=== PATIENT | male | born 1960 | race American Indian/Alaskan Native ===

== ENCOUNTER 2016-08-08 07:52 | Outpatient (CLI) | payer OTHER | END 2016-08-08 07:53 | disposition home or self-care (01) | DX: Z53.9 Procedure and treatment not carried out, unspecified reason (principal) ==

== ENCOUNTER 2017-06-22 15:31 | Outpatient (CLI) | payer OTHER ==
--- NOTE | 2017-06-22 17:36 | XRAY Report ---
DATE OF SERVICE: 06/22/2017 COMPLETE LUMBAR SPINE: 06/22/2017 CLINICAL INDICATION: Back pain. FINDINGS: AP, lateral, oblique views of the lumbar spine demonstrate mild degenerative disk and facet disease. There is bilateral L5 pars defect present, without evidence of anterolisthesis of L5 on S1. No compression fracture is seen. IMPRESSION: DEGENERATIVE CHANGES. BILATERAL L5 PARS DEFECTS, WITHOUT EVIDENCE OF ANTEROLISTHESIS OF L5 TD: 06/22/2017 17:36
== END 2017-06-22 15:32 | disposition home or self-care (01) ==
LOC: DI 15:31
PROVIDERS: ATTEND Family Medicine
DX: M47.896 Other spondylosis, lumbar region (principal); M51.36 Other intervertebral disc degeneration, lumbar region; M43.06 Spondylolysis, lumbar region
CPT/HCPCS: 72110

== ENCOUNTER 2020-01-05 10:53 | Outpatient (CLI) | payer OTHER ==
--- NOTE | 2020-01-05 11:28 | CT Report ---
PROCEDURE: HEAD WO INDICATIONS: ANESTHESIA OF SKIN TECHNIQUE: Noncontrast 4.5 mm thick angled axial sections acquired from the foramen magnum to the vertex. For r adiation dose reduction, the following was used: automated exposure control, adjustment of mA and/or kV according to patient size. COMPARISON: None. FINDINGS: Image quality: Excellent. CSF spaces: Basal cisterns are patent. No extra-axial fluid collections. Ventricles are normal in size and shape. Brain: No midline shift. No intracranial masses or hemorrhage. Spears-white matter interface is norm al. Skull and face: Calvarium and visualized facial bones are intact, without suspicious lesions. Sinuses: Visualized sinuses and mastoids are clear. IMPRESSION: No acute intracranial finding. Reviewed by: Diony Zimmer MD on 01/05/2020 11:27 AM PDT Approved by: Diony Zimmer MD on 01/05/2020 11:27 AM PDT Station ID: [id number]
== END 2020-01-05 10:54 | disposition home or self-care (01) ==
LOC: DI 10:53
PROVIDERS: ATTEND Family Medicine
DX: R20.0 Anesthesia of skin (principal)
CPT/HCPCS: 70450

== ENCOUNTER 2021-08-03 07:35 | Day surgery (SDC) | payer OTHER ==
[2021-08-03] MEDS ORDERED: LACTATED RINGERS 1,000 ML IV ONE ×2 (07:54→09:12)
[2021-08-03] MEDS ORDERED: PROPOFOL 500 MG/50 ML 500 MG/50 ML VIAL ONE (08:25)
--- NOTE | 2021-08-03 08:26 | ANESTHESIA ---
Pre-Anesthesia VS, & Labs - Diagnosis GERD, screening - Procedure EGD, Colonoscopy Vital Signs: Temp Pulse Resp BP Pulse Ox 36.7 C 99 16 160/106 H 98 08/03/21 07:56 08/03/21 07:56 08/03/21 07:56 08/03/21 07:56 08/03/21 07:56 Height: 5 ft 10 in Weight (kg): 104.6 kg Body Mass Index: 33.0 BMI Classification: Obese - NPO >8 hours - Lab Results Current Lab Results: Laboratory Tests 08/03/21 08:07: POC Whole Bld Glucose 128 H Home Medications and Allergies Allergies/Adverse Reactions: Allergies Allergy/AdvReac Type Severity Reaction Status Date / Time No Known Drug Allergies Allergy Verified 08/03/21 08:00 Anes History & Medical History - Anesthetic History Family history of Anesthesia Complications: Denies Family history of Malignant Hyperthermia: Denies - Medical History Cardiovascular: reports: Congestive heart failure, Hypertension, High c holesterol Pulmonary: reports: None Gastrointestinal: reports: GERD Urinary: reports: None Neuro: reports: Other (tinnitis) Musculoskeletal: reports: None Endocrine/Autoimmune: reports: Type 2 diabetes, HyPOthyroidism Skin: reports: Eczema Psychosocial: reports: Anxiety - Surgical History Orthopedic: reports: Arthroscopic surgery Exam General: Alert Dental: WNL, Other (removed dental work prior to arrival to preop) Mouth Openin Fingerbreadth Neck Mobility: Normal Mallampati classification: II Respiratory: Lungs clear Cardiovascular: Regular rate Plan Anesthesia Type: Total IV Consent for Procedure(s) Verified and Reviewed: Yes Code Status: Attempt Resuscitation ASA classification: 3-Severe systemic disease Is this case an emergency?: No
[2021-08-03 09:46] VITALS: BP 162/89
[2021-08-03] MEDS ORDERED: LIDOCAINE 1% 50 ML MDV ONE (12:16)
[2021-08-03] MEDS ORDERED: BUPIVACAINE 0.5% PF 10 ML VIAL ONE (12:16)
--- NOTE | 2021-08-03 15:11 | ANESTHESIA POST OP EVALUATION ---
Anesthesia Post Eval - Post Anesthesia Eval Vitals: Last Vital Signs Temp 36.6 C 08/03/21 09:44 Pulse 74 08/03/21 09:44 Resp 15 08/03/21 09:44 BP 162/89 H 08/03/21 09:44 Pulse Ox 97 08/03/21 09:44 CV Function Including HR & BP: Stable Pain Control: Satisfactory Nausea & Vomiting: Negative Mental Status: Baseline Respiratory Status: Airway Patent Hydration Status: Satisfactory Anesthesia Complications: None
== END 2021-08-03 07:36 | disposition home or self-care (01) ==
LOC: SDS 07:35
PROVIDERS: ATTEND Surgery
PROC: 0DB78ZX Excision of Stomach, Pylorus, Via Natural or Artificial Opening Endoscopic, Diagnostic (ICD-10-PCS; 2021-08-03)
PROC: 0DBK8ZZ Excision of Ascending Colon, Via Natural or Artificial Opening Endoscopic (ICD-10-PCS; principal; 2021-08-03 08:30)
PROC: 0DB58ZX Excision of Esophagus, Via Natural or Artificial Opening Endoscopic, Diagnostic (ICD-10-PCS; 2021-08-03 08:30)
DX: Z12.11 Encounter for screening for malignant neoplasm of colon (principal); K21.9 Gastro-esophageal reflux disease without esophagitis; D12.2 Benign neoplasm of ascending colon; K64.8 Other hemorrhoids; K20.90 Esophagitis, unspecified without bleeding; K44.9 Diaphragmatic hernia without obstruction or gangrene; K29.50 Unspecified chronic gastritis without bleeding; E66.9 Obesity, unspecified; Z68.33 Body mass index [BMI] 33.0-33.9, adult; E11.9 Type 2 diabetes mellitus without complications
CPT/HCPCS: 43239; 45385; 87635; J7120

== ENCOUNTER 2022-11-30 06:43 | Day surgery (SDC) | payer OTHER ==
[~2022-11-30 06:43] MED LIST: CYCLOPENTOLATE 1% OPHTH DROPS 2 ML ONE; KETOROLAC 0.45% OPHTH DROPS ONE; PHENYLEPHRINE 2.5% OPHTH 2 ML DROPS ONE; PROPARACAINE 0.5% OPHTH DROPS 15 ML ONE
[2022-11-30] MEDS ORDERED: LACTATED RINGERS 1,000 ML IV ONE ×2 (06:57→08:21)
--- NOTE | 2022-11-30 07:41 | ANESTHESIA ---
Pre-Anesthesia VS, & Labs - Diagnosis L cataract - Procedure L PhacoIOL Vital Signs: Temp Pulse Resp BP Pulse Ox O2 Flow Rate 36.5 C 86 16 145/96 H 95 11/30/22 07:06 11/30/22 07:06 11/30/22 07:06 11/30/22 07:06 11/30/22 07:06 Height: 5 ft 10 in Weight (kg): 105 kg Body Mass Index: 33.2 BMI Classification: Obese - NPO >8 hours - Lab Results Current Lab Results: Laboratory Tests 11/30/22 07:15: POC Whole Bld Glucose 145 H Home Medications and Allergies ALPRAZolam [Alprazolam] 0.5 mg PO DAILY PRN 08/03/21 Aspirin [[place] Aspirin] 81 mg PO DAILY 08/03/21 Cetirizine [ZyrTEC] 10 mg PO DAILY 08/03/21 Dupilumab [Dupixent Pen] 300 mg SQ UD 08/03/21 Gabapentin [Neurontin] 300 mg PO BID 08/03/21 Insulin Glargine [Lantus Solostar] 45 - 50 unit SQ DAILY 08/03/21 Levothyroxine [Synthroid] 125 mcg PO QDAC 08/03/21 Losartan Potassium [Cozaar] 100 mg PO DAILY 08/03/21 Metformin HCl [Metformin ER Gastric] 1,000 mg PO BID 08/03/21 Metoprolol Tartrate [Lopressor] 50 mg PO DAILY 08/03/21 Omeprazole Magnesium 20 mg PO DAILY 08/03/21 Sildenafil Citrate [Sildenafil] 20 mg PO DAILY 08/03/21 Simvastatin [Zocor] 20 mg PO DAILY 08/03/21 Testosterone Cypionate 200 mg IM UD 08/03/21 Allergies/Adverse Reactions: Allergies Allergy/AdvReac Type Severity Reaction Status Date / Time No Known Drug Allergies Allergy Verified 08/03/21 08:00 Anes History & Medical History - Anesthetic History Anesthesia Complications: reports: No previous complications Family history of Anesthesia Complications: Denies - Medical History Cardiovascular: reports: Congestive heart failure, Hypertension, High cholesterol Pulmonary: reports: None Gastrointestinal: reports: GERD Urinary: reports: None Neuro: reports: Other (tinnitis) Musculoskeletal: reports: None Endocrine/Autoimmune: reports: Type 2 diabetes, HyPOthyroidism Skin: reports: Eczema - Surgical History General: reports: Colonoscopy Orthopedic: reports: Arthroscopic surgery Exam General: Alert, Oriented x3, Cooperative Dental: WNL Mouth Openin Fingerbreadth Neck Mobility: Normal Mallampati classification: II Thyromental Distance: 4-6 cm Respiratory: Lungs clear Cardiovascular: Regular rate Plan Anesthesia Type: MAC Consent for Procedure(s) Verified and Reviewed: Yes Code Status: Attempt Resuscitation ASA classification: 2-Mild systemic disease Is this case an emergency?: No
[2022-11-30] MEDS ORDERED: MIDAZOLAM 2 MG/2 ML VIAL ONE (07:47)
[2022-11-30] MEDS ORDERED: fentaNYL 100 MCG/2 ML VIAL ONE (07:47)
[2022-11-30] MEDS ORDERED: TRIAMCIN/MOXIFLOX OPHTHALMIC 0.6 ML VIAL IO ONE ×2 (07:53→08:16)
[2022-11-30] MEDS ORDERED: EPINEPHrine 1 MG/ML AMP ONE (07:53)
[2022-11-30] MEDS ORDERED: TIMOLOL 0.5% OPHTH DROPS ONE (07:53)
[2022-11-30] MEDS ORDERED: BRIMONIDINE 0.2% OPHTH DROPS 5 ML ONE (07:53)
[2022-11-30] MEDS ORDERED: BSS/LIDOCAINE/EPINEPHRINE 1 ML VIAL ONE (07:54)
[2022-11-30] MEDS ORDERED: VANCOMYCIN OPHTH (TOPICAL) 10 MG/ML SYRINGE ONE (07:54)
[2022-11-30] MEDS ORDERED: VANCOMYCIN OPHTH (TOPICAL) 10 MG/ML SYRINGE TOP ONE (08:16)
[2022-11-30] MEDS ORDERED: BSS/LIDOCAINE/EPINEPHRINE 1 ML SYRINGE IO ONE (08:16)
[2022-11-30] MEDS ORDERED: PROPARACAINE 0.5% OPHTH DROPS 15 ML LEFTEYE ONE (08:16)
[2022-11-30] MEDS ORDERED: TIMOLOL 0.5% OPHTH DROPS OPTH ONE (08:16)
[2022-11-30] MEDS ORDERED: EPINEPHrine 1 MG/ML AMP IR ONE (08:16)
[2022-11-30] MEDS ORDERED: BRIMONIDINE 0.2% OPHTH DROPS 5 ML OPTH ONE (08:17)
--- NOTE | 2022-11-30 08:32 | OPERATIVE REPORT ---
Operative Report - Other Other Information/Narrative: Date of Surgery: 11/30/22 Preop Dx: Visually significant cataract left eye. This was the first cataract surgery. Postop Dx: Same Procedure: Phacoemulsification with posterior chamber intraocular lens implant left eye Surgeon: Dr. Maurice Ramey Anesthesia: Monitored anesthesia care Complications: None Operative Indications: This is a 62-year-old M with progressive vision loss in the left eye due to 1+ nuclear sclerotic, trace posterior subcapsular, and vacuolar cataract. Best corrected visual acuity was 20/25 with glare to 20/250 vision in the left eye. Indications for surgery were: - Overall decrease in vision - Difficulty seeing words on a computer screen - Difficulty reading - Difficulty seeing words, closed captions, or game scores on TV - Difficulty seeing street signs - Difficulty driving in low light or at night - Difficulty driving at night because of headlights from other vehicles - Difficulty with glare or bright lights in any situation - Decreased acuity with firearms The patient was consented at length concerning the risks and benefits of cat aract surgery after which the patient expressed a desire to proceed with surgery. Operative Procedure: The patient was taken into OR#3 and placed under monitored anesthesia care. A surgical time-out was conducted confirming correct patient, correct procedure, and correct surgical site. The patient was given topical anesthesia and then prepped and draped in the usual sterile fashion. The eye was entered at the 6 and 3 oclock positions. Intracameral Shugarcaine was injected into the anterior chamber followed by a dispersive viscoelastic. A continuous-tear curvilinear capsulorhexis was performed. The nucleus was hydrodissected and phacoemulsified. The cortex was evacuated using automated infusion and aspiration. A cohesive viscoelastic was injected into the capsular bag and a 17.0 diopter intraocular lens was inserted into the bag. Infusion and aspiration were used to evacuate the viscoelastic materials from the eye. The wounds were hydrated and the eye inflated to physiologic pressure using balanced salt solution. Approximately 0.25ml of a mixture of triamcinolone and moxifloxacin was injected trans-sclerally into the vitreous in the inferotempora l quadrant using a 30 gauge cannula. An additional 0.25ml of a mixture of triamcinolone and moxifloxacin was injected subconjunctivally in the superior quadrant for infection and inflammation prophylaxis. Wound integrity was checked with Weck-Jada sponges. The patient was taken from the operating room in good condition and given post-op instructions.
[2022-11-30 08:35] VITALS: BP 124/89
--- NOTE | 2022-11-30 10:46 | ANESTHESIA POST OP EVALUATION ---
Anesthesia Post Eval - Post Anesthesia Eval Vitals: Last Vital Signs Temp 36.1 C L 11/30/22 08:22 Pulse 89 11/30/22 08:31 Resp 95 H 11/30/22 08:31 BP 124/89 H 11/30/22 08:31 Pulse Ox 13 L 11/30/22 08:31 O2 Flow Rate CV Function Including HR & BP: Stable Pain Control: Satisfactory Nausea & Vomiting: Negative Mental Status: Baseline Respiratory Status: Airway Patent Hydration Status: Satisfactory Anesthesia Complications: None
== END 2022-11-30 06:44 | disposition home or self-care (01) ==
LOC: SDS 06:43
PROVIDERS: ATTEND Ophthalmology
DX: E11.36 Type 2 diabetes mellitus with diabetic cataract (principal); H25.812 Combined forms of age-related cataract, left eye; F41.9 Anxiety disorder, unspecified; E66.9 Obesity, unspecified; Z68.33 Body mass index [BMI] 33.0-33.9, adult
CPT/HCPCS: 66984; A9270; J3490; J7120

== ENCOUNTER 2023-01-18 06:24 | Day surgery (SDC) | payer OTHER ==
[~2023-01-18 06:24] MED LIST changes: -CYCLOPENTOLATE 1% OPHTH DROPS 2 ML ONE; -KETOROLAC 0.45% OPHTH DROPS ONE
[2023-01-18] MEDS: KETOROLAC 0.45% OPHTH DROPS ONE ×2 (06:39→06:40)
[2023-01-18] MEDS: CYCLOPENTOLATE 1% OPHTH DROPS 2 ML ONE ×2 (06:40→06:41)
--- NOTE | 2023-01-18 06:49 | ANESTHESIA ---
Pre-Anesthesia VS, & Labs - Diagnosis R cataract - Procedure R extraction cataract w IOL Height: 5 ft 10 in - NPO >8 hours - Lab Results Lab results reviewed: Yes Home Medications and Allergies ALPRAZolam [Alprazolam] 0.5 mg PO DAILY PRN 08/03/21 Aspirin [[place] Aspirin] 81 mg PO DAILY 08/03/21 Cetirizine [ZyrTEC] 10 mg PO DAILY 08/03/21 Dupilumab [Dupixent Pen] 300 mg SQ UD 08/03/21 Gabapentin [Neurontin] 300 mg PO TID 08/03/21 Insulin Glargine [Lantus Solostar] 45 - 50 unit SQ DAILY 08/03/21 Levothyroxine [Synthroid] 125 mcg PO QDAC 08/03/21 Losartan Potassium [Cozaar] 100 mg PO DAILY 08/03/21 Metformin HCl [Metformin ER Gastric] 1,000 mg PO BID 08/03/21 Metoprolol Tartrate [Lopressor] 50 mg PO DAILY 08/03/21 Omeprazole Magnesium 20 mg PO DAILY 08/03/21 Sildenafil Citrate [Sildenafil] 20 mg PO DAILY 08/03/21 Simvastatin [Zocor] 20 mg PO DAILY 08/03/21 Testosterone Cypionate 200 mg IM UD 08/03/21 Allergies/Adverse Reactions: Allergies Allergy/AdvReac Type Severity Reaction Status Date / Time No Known Drug Allergies Allergy Verified 01/17/23 12:33 Anes History & Medical History - Anesthetic History Anesthesia Complications: reports: No previous complications Family history of Anesthesia Complications: Denies Family history of Malignant Hyperthermia: Denies - Medical History Cardiovascular: reports: Congestive heart failure, Hypertension, High choleste rol Pulmonary: reports: None Gastrointestinal: reports: GERD Urinary: reports: None Neuro: reports: Other (tinnitis) Musculoskeletal: reports: None Endocrine/Autoimmune: reports: Type 2 diabetes, HyPOthyroidism Skin: reports: Eczema Psychosocial: reports: No issues indicated History of Cancer?: No - Surgical History General: reports: Colonoscopy Orthopedic: reports: Arthroscopic surgery Exam General: Alert, Oriented x3, Cooperative Dental: WNL Mouth Openin Fingerbreadth Neck Mobility: Normal Mallampati classification: II Thyromental Distance: 4-6 cm Respiratory: Lungs clear, Normal breath sounds, No respiratory distress Cardiovascular: Regular rate Neurological: Normal speech Mental/Cognitive Status: Alert/Oriented X3, Normal for patient Cognitive Status: Within normal limits Plan Anesthesia Type: MAC Consent for Procedure(s) Verified and Reviewed: Yes Code Status: Attempt Resuscitation ASA classification: 2-Mild systemic disease Is this case an emergency?: No
[2023-01-18] MEDS ORDERED: LACTATED RINGERS 1,000 ML IV ONE (07:05)
[2023-01-18] MEDS ORDERED: fentaNYL 100 MCG/2 ML VIAL ONE (07:07)
[2023-01-18] MEDS ORDERED: MIDAZOLAM 2 MG/2 ML VIAL ONE (07:07)
[2023-01-18] MEDS ORDERED: BRIMONIDINE 0.2% OPHTH DROPS 5 ML ONE (07:11)
[2023-01-18] MEDS ORDERED: EPINEPHrine 1 MG/ML AMP ONE (07:11)
[2023-01-18] MEDS ORDERED: TRIAMCIN/MOXIFLOX OPHTHALMIC 0.6 ML VIAL IO ONE ×4 (07:11→07:40)
[2023-01-18] MEDS ORDERED: BSS/LIDOCAINE/EPINEPHRINE 1 ML VIAL ONE (07:12)
[2023-01-18] MEDS ORDERED: TIMOLOL 0.5% OPHTH DROPS ONE (07:12)
[2023-01-18] MEDS ORDERED: BRIMONIDINE 0.2% OPHTH DROPS 5 ML OPTH ONE (07:40)
[2023-01-18] MEDS ORDERED: TIMOLOL 0.5% OPHTH DROPS OPTH ONE (07:40)
[2023-01-18] MEDS ORDERED: PROPARACAINE 0.5% OPHTH DROPS 15 ML RIGHTEYE ONE (07:40)
[2023-01-18] MEDS ORDERED: BSS/LIDOCAINE/EPINEPHRINE 1 ML SYRINGE IO ONE (07:40)
[2023-01-18] MEDS ORDERED: VANCOMYCIN OPHTH (TOPICAL) 10 MG/ML SYRINGE TOP ONE (07:40)
[2023-01-18] MEDS ORDERED: EPINEPHrine 1 MG/ML AMP IR ONE (07:40)
[2023-01-18] MEDS ORDERED: LACTATED RINGERS 850 ML IV ONE (07:46)
--- NOTE | 2023-01-18 07:54 | OPERATIVE REPORT ---
Operative Report - Other Other Information/Narrative: Date of Surgery: 01/18/23 Preop Dx: Visually significant cataract right eye. Cataract surgery was performed in the left eye on [id number]. Postop Dx: Same Procedure: Phacoemulsification with posterior chamber intraocular lens implant right eye Surgeon: Dr. Maurice Ramey Anesthesia: Monitored anesthesia care Complications: None Operative Indications: This is a 62-year-old M with progressive vision loss in the right eye due to 1+ nuclear sclerotic, 1+ posterior subcapsular, and vacuolar cataract. Best corrected visual acuity was 20/30 with glare to 20/500 vision in the right eye. Indications for surgery were: - Overall decrease in vision - Difficulty seeing words on a computer screen - Difficulty reading - Difficulty seeing words, closed captions, or game scores on TV - Difficulty seeing street signs - Difficulty driving in low light or at night - Difficulty driving at night because of headlights from other vehicles - Difficulty with glare or bright lights in any situation - Decreased acuity with firearms The patient was consented at length concerning the risks and benefits of cataract surgery after which the patient expressed a desire to proceed with surgery. Operative Procedure: The patient was taken into OR#3 and placed under monitored anesthesia care. A surgical time-out was conducted confirming correct patient, correct procedure, and correct surgical site. The patient was given topical anesthesia and then prepped and draped in the usual sterile fashion. The eye was entered at the 6 and 3 oclock positions. Intracameral Shugarcaine was injected into the anterior chamber followed by a dispersive viscoelastic. A continuous-tear curvilinear capsulorhexis was performed. The nucleus was hydrodissected and phacoemulsified. The cortex was evacuated using automated infusion and aspiration. A cohesive viscoelastic was injected into the capsular bag and a 18.5 diopter intraocular lens was inserted into the bag. Infusion and aspiration were used to evacuate the viscoelastic materials from the eye. The wounds were hydrated and the eye inflated to physiologic pressure using balanced salt solution. Approximately 0.25ml of a mixture of triamcinolone and moxifloxacin was injected trans-sclerally into the vitreous in the inferotemporal quadrant using a 30 gauge cannula. An additional 0.25ml of a mixture of triamcinolone and moxifloxacin was injected subconjunctivally in the superior quadrant for infection and inflammation prophylaxis. Wound integrity was checked with Weck-Jada sponges. The patient was taken from the operating room in good condition and given post-op instructions.
--- NOTE | 2023-01-18 07:56 | ANESTHESIA POST OP EVALUATION ---
Anesthesia Post Eval - Post Anesthesia Eval Vitals: Last Vital Signs Temp 36.0 C L 01/18/23 07:46 Pulse 78 01/18/23 07:46 Resp 16 01/18/23 07:46 BP 137/82 H 01/18/23 07:46 Pulse Ox 96 01/18/23 07:46 O2 Flow Rate CV Function Including HR & BP: Stable Pain Control: Satisfactory Nausea & Vomiting: Negative Mental Status: Baseline Respiratory Status: Airway Patent Hydration Status: Satisfactory Anesthesia Complications: None
[2023-01-18 11:04] VITALS: BP 129/81; O2SAT 96
== END 2023-01-18 06:25 | disposition home or self-care (01) ==
LOC: SDS 06:24
PROVIDERS: ATTEND Ophthalmology
DX: E11.36 Type 2 diabetes mellitus with diabetic cataract (principal); H25.811 Combined forms of age-related cataract, right eye; I11.0 Hypertensive heart disease with heart failure; I50.9 Heart failure, unspecified; Z79.4 Long term (current) use of insulin; Z79.84 Long term (current) use of oral hypoglycemic drugs; Z79.899 Other long term (current) drug therapy
CPT/HCPCS: 66984; A9270; J3490; J7120

== ENCOUNTER 2024-01-04 09:23 | Outpatient (CLI) | payer SELFPAY ==
--- NOTE | 2024-01-04 19:45 | CT Report ---
PROCEDURE: CT heart coronary calcium scoring without contrast TECHNIQUE: MDCT non-contrast cardiac gated images were obtained from the collins through the inferior margin of the heart. Calcium score was obtained by post-processing with external software. Automated exposure control was used to reduce patient radiation dose. INDICATION: CAD screening, low or intermediate risk COMPARISON: None. FINDINGS: Image quality: Excellent Agatston method: Total calcium score: 937.5 L main: 0 LAD: 625.8 LCX: 0 RCA: 311.7 Heart findings: Mitral annular calcifications: No significant calcifications. Aortic valve: No significant valvular calcifications. Chambers: No significant enlargement on this non-dynamic study. Pericardium: No effusion. Other findings (note the chest is incompletely imaged on this limited non-contrast study): Lungs and pleura: No pleural effusion. No actionable lung nodules. Mediastinum: No pathologic lymphadenopathy. There is a small hiatal hernia. Upper abdomen: Partially seen, unremarkable. Bones: No acute or suspicious abnormality. IMPRESSION: Severe coronary artery calcification. Additional findings: Small hiatal hernia Coronary artery calcium scores have been identified as an independent risk factor for future acute co ronary syndromes and correlate with the quantity of coronary atherosclerotic plaque. However, they do not correlate directly with the degree of stenosis. A low score does not exclude a significant coron lucy artery stenosis. Risk of future coronary events should be assessed with individual patient risk factors and medical hi story. Consider correlation with risk percentiles using the MARTINEZ (Multi-Ethnic Study of Atheroscleros is) calculator. CAC-DRS Categories: A0: 0, very low risk, consider repeat coronary calcium study every 3-7 years for surveillance. A1: 1-99, mildly increased risk, consider moderate-intensity statin A2: 100-299: moderately increased risk, consider moderate to high-intensity statin + ASA 81mg A3: >300: moderately to severely increased risk, consider high-intensity statin + ASA 81mg Reviewed by: Jian Villavicencio MD on 01/04/2024 6:43 PM AKANILA Approved by: Jian Villavicencio MD on 01/04/2024 6:43 PM AKANILA Station ID: [id number]
== END 2024-01-04 09:24 | disposition home or self-care (01) ==
LOC: DI 09:23
PROVIDERS: ATTEND Family Medicine
DX: I25.10 Atherosclerotic heart disease of native coronary artery without angina pectoris (principal); E11.65 Type 2 diabetes mellitus with hyperglycemia